=== PATIENT | male | born 1955 | race Hispanic/Latino ===

== ENCOUNTER 2019-10-07 14:53 | Emergency (ER) | payer MEDICAID, MEDICARE ==
[2019-10-07 15:24] LABS: BASOPHILS % (AUTO) 0.2 % (0.0-5.0); LYMPHOCYTES % (AUTO) 14.7 % (21.0-51.0); MEAN CORPUSCULAR HEMOGLOBIN 32.5 pg (27.0-33.0); MEAN CORPUSCULAR HGB CONC 35.7 g/dL (32.0-36.0); MEAN CORPUSCULAR VOLUME 91.1 fL (79-99); NEUTROPHILS % (AUTO) 71.7 % (40.0-77.0); PLATELET COUNT (AUTO) 144 K/uL (130-400); RED BLOOD CELL COUNT(AUTO) 4.61 MIL/uL (4.50-6.20); RED CELL DISTRIBUTION WIDTH 12.7 % (11.0-15.5); WHITE BLOOD COUNT (AUTO) 4.8 K/uL (4.8-10.8)
[2019-10-07 15:35] LABS: CREATININE 0.6 mg/dL (0.5-1.5); POTASSIUM 3.2 mmol/L (3.5-5.1)
[2019-10-07 15:49] LABS: ALBUMIN 3.5 g/dL (3.5-5.0); BILIRUBIN,TOTAL 0.3 mg/dL (0.2-1.0); TOTAL PROTEIN, SERUM 7.4 g/dL (6.0-8.3)
[2019-10-07] MEDS ORDERED: POTASSIUM CHLORIDE 20 MEQ ERTAB PO ONE (16:26)
[2019-10-07] MEDS ORDERED: GUAIFENESIN SUGAR-FREE 100 MG/5 ML UDCUP ONE (17:13)
[2019-10-07] MEDS ORDERED: BENZONATATE 100 MG CAPSULE PO ONE (17:14)
== END 2019-10-07 17:42 | disposition home or self-care (01) ==
LOC: EDH 14:53
DX: U07.1 COVID-19 (principal); J20.8 Acute bronchitis due to other specified organisms; R07.89 Other chest pain; R03.0 Elevated blood-pressure reading, without diagnosis of hypertension; E87.6 Hypokalemia
CPT/HCPCS: 36415; 71045; 80053; 82550; 84484; 85025; 87426; 93005

== ENCOUNTER 2019-10-12 21:34 | Inpatient (IN) | payer MEDICARE ==
[~2019-10-12] VITALS: Ht 165.1 cm; Wt 70.4 kg
[2019-10-12 22:02] LABS: BASOPHILS % (AUTO) 0.1 % (0.0-5.0); HEMATOCRIT 43.6 % (42-54); LYMPHOCYTES % (AUTO) 6.8 % (21.0-51.0); MEAN CORPUSCULAR HEMOGLOBIN 32.2 pg (27.0-33.0); MEAN CORPUSCULAR HGB CONC 35.3 g/dL (32.0-36.0); MONOCYTES % (AUTO) 5.6 % (3.0-13.0); NEUTROPHILS % (AUTO) 86.8 % (40.0-77.0); PLATELET COUNT (AUTO) 228 K/uL (130-400); RED BLOOD CELL COUNT(AUTO) 4.79 MIL/uL (4.50-6.20); RED CELL DISTRIBUTION WIDTH 12.8 % (11.0-15.5); WHITE BLOOD COUNT (AUTO) 8.7 K/uL (4.8-10.8)
[2019-10-12 22:19] LABS: CREATININE 0.6 mg/dL (0.5-1.5); POTASSIUM 3.5 mmol/L (3.5-5.1)
[2019-10-12 22:33] LABS: FERRITIN 508 ng/mL (30-400)
[2019-10-12 22:41] LABS: ALBUMIN 2.9 g/dL (3.5-5.0); BILIRUBIN,TOTAL 0.6 mg/dL (0.2-1.0); TOTAL PROTEIN, SERUM 7.2 g/dL (6.0-8.3)
[2019-10-12] MEDS ORDERED: IOHEXOL-350 75 ML VIAL IV ONE (23:27)
[2019-10-13] VITALS (14 sets, daily range): BP systolic 116–138; BP diastolic 67–92
[2019-10-13] MEDS ORDERED: BENZONATATE 100 MG CAPSULE PO PRN (00:15)
[2019-10-13] MEDS ORDERED: ONDANSETRON HCL 4 MG/2 ML VIAL IV PRN (00:15)
[2019-10-13] MEDS ORDERED: LIDOCAINE HCL 2% VISCOUS 30 ML, MAG HYDROX/AL HYDROX/SIMETH 30 ML, BELLADONNA-PHENOBARB... PO PRN ×3 (00:15)
[2019-10-13] MEDS ORDERED: LACTATED RINGERS 1000ML 1,000 ML IV SCH (00:15)
[2019-10-13] MEDS ORDERED: ZOLPIDEM TARTRATE 5 MG TAB PO PRN (00:15)
[2019-10-13] MEDS ORDERED: MAG HYDROX/AL HYDROX/SIMETH 30 ML, LIDOCAINE HCL 2% VISCOUS 30 ML, DIPHENHYDRAMINE HCL ... PO PRN ×6 (00:15→06:30)
[2019-10-13] MEDS ORDERED: DiphenhydrAMINE HCL 50 MG/ML VIAL IV PRN (00:15)
[2019-10-13] MEDS ORDERED: DIPHENHYDRAMINE HCL 25 MG CAPSULE PO PRN (00:15)
[2019-10-13] MEDS ORDERED: ACETAMINOPHEN 325 MG TAB PO PRN ×2 (00:15)
[2019-10-13] MEDS ORDERED: LACTULOSE 20 GM/30 ML UDCUP PO PRN (00:15)
[2019-10-13] MEDS ORDERED: MAG HYDROX/AL HYDROX/SIMETH ES 30 ML SUSP UDCUP PO PRN (00:15)
[2019-10-13] MEDS ORDERED: NITROGLYCERIN 0.4 MG SL TAB SL PRN (00:15)
[2019-10-13] MEDS: PHARMACY COMMUNICATION**REMDESIVIR ORDER MISC SCH ×4 (00:30→20:50)
[2019-10-13] MEDS ORDERED: AZIT250T9 PO (02:43)
[2019-10-13] MEDS ORDERED: METH4TAB15 PO (02:43)
[2019-10-13] MEDS ORDERED: BENZ-51 PO (02:43)
[2019-10-13] MEDS ORDERED: IVER3TAB PO (02:43)
[2019-10-13] MEDS ORDERED: BUDE10.2 PO (02:43)
[2019-10-13 07:26] LABS: INR 0.93 (0.85-1.15); PARTIAL THROMBOPLASTIN TIME 28.2 SEC (26.3-35.5); PROTHROMBIN TIME 10.1 SEC (9.6-11.6)
[2019-10-13] MEDS: ENOXAPARIN SODIUM 40 MG/0.4 ML SYRINGE SQ SCH (08:23)
[2019-10-13] MEDS: FAMOTIDINE/PF 20 MG/2 ML VIAL IV SCH ×2 (08:23→20:49)
--- NOTE | 2019-10-13 16:43 | NUR ---
FFP Pt received Plasma x2. VS stable.No abnormal sins and symptoms were noted. Family called and updated (Susanne/sister [phone])
[2019-10-13] MEDS ORDERED: GUAIFENESIN-CODEINE 5 ML SYRUP PO PRN (20:15)
[2019-10-13] MEDS: GUAIFENESIN-DM 200/20 MG 10 ML PO PRN (20:50)
[2019-10-14 03:00] VITALS: BP 107/68
[2019-10-14 04:36] LABS: ALANINE AMINOTRANSFERASE 64 U/L (12-78); ALBUMIN 2.3 g/dL (3.5-5.0); ASPARTATE AMINOTRANSFERASE 71 U/L (10-37); BILIRUBIN,TOTAL 0.6 mg/dL (0.2-1.0); CARBON DIOXIDE 29 mmol/L (21-32); CHLORIDE 103 mmol/L (101-111); CREATININE 0.5 mg/dL (0.5-1.5); GLOMERULAR FILTR. RATE CALC 178 mL/min (>60); GLUCOSE,RANDOM 110 mg/dL (70-105); LACTATE DEHYDROGENASE 362 U/L (81-234); POTASSIUM 3.4 mmol/L (3.5-5.1); SODIUM SERUM 138 mmol/L (136-145); TOTAL PROTEIN, SERUM 5.8 g/dL (6.0-8.3); UREA NITROGEN, BLOOD 10 mg/dL (7-18)
[2019-10-14] MEDS ORDERED: LIDOCAINE HCL-MPF 1% 2ML VIAL IV PRN (05:00)
[2019-10-14] MEDS ORDERED: POTASSIUM CHLORIDE 20MEQ/100ML 100 ML IV PRN (05:00)
[2019-10-14] MEDS ORDERED: POTASSIUM CHLORIDE 20 MEQ ERTAB PO PRN (05:00)
[2019-10-14] MEDS: POTASSIUM CHLORIDE 10% ELIXIR 20 MEQ/15 ML UDCUP PO PRN (06:21)
[2019-10-14] MEDS: FAMOTIDINE/PF 20 MG/2 ML VIAL IV SCH ×2 (07:59→20:35)
[2019-10-14] MEDS: ENOXAPARIN SODIUM 40 MG/0.4 ML SYRINGE SQ SCH (07:59)
[2019-10-14 09:03] VITALS: BP 111/75
[2019-10-14] MEDS ORDERED: PHARMACY COMMUNICATION MISC SCH ×2 (09:45→23:30)
[2019-10-14 12:13] VITALS: BP 126/82
[2019-10-14 15:36] VITALS: BP 107/67
[2019-10-14 19:00] VITALS: BP 130/85
--- NOTE | 2019-10-14 19:24 | NUR ---
cm note unable to reach pt in room, call made to sister gustavo rain ph# [phone] and states resides at home alone. is independent with ambulation/adls no dme. no home services. pt drives some. sister can assist as needed. Addendum: 10/14/19 at 1928 by LUIS ANTONIO ALTAMIRANO CM Amended: Links added.
--- NOTE | 2019-10-14 19:30 | NUR ---
PM Assessment Received pt awake, watching TV, routine assessment done, plan of care discuss, pt stated that he was inform by MD & wondering when he will start medication for COVID. I made him aware that we will re-verify with MD tomorrow as I did received report that pt did not meet criteria for Remdesivir. Pt confirm had received plasma & that stated feeling better at this time. Pt O2 on assessment was not connected to the pt, stated he did ambulate to the bathroom earlier & forgot to place it back. Pt claimed slight SOB at that time, O2 at 2L/NC place back on at this time.
[2019-10-14 23:00] VITALS: BP 134/87
[2019-10-15 03:00] VITALS: BP 131/86
[2019-10-15 04:18] LABS: BASOPHILS % (AUTO) 0.3 % (0.0-5.0); EOSINOPHILS % (AUTO) 2.4 % (0.0-8.0); HEMATOCRIT 38.9 % (42-54); LYMPHOCYTES % (AUTO) 18.4 % (21.0-51.0); MEAN CORPUSCULAR HEMOGLOBIN 31.7 pg (27.0-33.0); MEAN CORPUSCULAR HGB CONC 34.2 g/dL (32.0-36.0); MEAN CORPUSCULAR VOLUME 92.6 fL (79-99); MONOCYTES % (AUTO) 9.6 % (3.0-13.0); NEUTROPHILS % (AUTO) 68.6 % (40.0-77.0); PLATELET COUNT (AUTO) 281 K/uL (130-400); RED CELL DISTRIBUTION WIDTH 12.4 % (11.0-15.5); WHITE BLOOD COUNT (AUTO) 7.6 K/uL (4.8-10.8)
[2019-10-15 04:39] LABS: ALANINE AMINOTRANSFERASE 66 U/L (12-78); ALBUMIN 2.3 g/dL (3.5-5.0); ASPARTATE AMINOTRANSFERASE 57 U/L (10-37); BILIRUBIN,TOTAL 0.6 mg/dL (0.2-1.0); CARBON DIOXIDE 29 mmol/L (21-32); CHLORIDE 103 mmol/L (101-111); CREATINE KINASE, TOTAL 176 U/L (21-232); CREATININE 0.5 mg/dL (0.5-1.5); GLOMERULAR FILTR. RATE CALC 178 mL/min (>60); GLUCOSE,RANDOM 117 mg/dL (70-105); LACTATE DEHYDROGENASE 331 U/L (81-234); POTASSIUM 3.4 mmol/L (3.5-5.1); SODIUM SERUM 139 mmol/L (136-145); TOTAL PROTEIN, SERUM 5.9 g/dL (6.0-8.3); UREA NITROGEN, BLOOD 9 mg/dL (7-18)
[2019-10-15 07:00] VITALS: BP 123/89
[2019-10-15] MEDS: FAMOTIDINE/PF 20 MG/2 ML VIAL IV SCH ×2 (08:52→20:15)
[2019-10-15] MEDS: DEXAMETHASONE SOD PHOSPHATE 4 MG/ML 1ML VIAL IVP SCH (08:53)
[2019-10-15] MEDS: ENOXAPARIN SODIUM 40 MG/0.4 ML SYRINGE SQ SCH (08:54)
[2019-10-15 11:00] VITALS: BP 147/89
--- NOTE | 2019-10-15 11:57 | NUR ---
MD ROUNDS DR COREAS IN TO SEE PATIENT, DISCUSS POC TO GET 2ND UNIT OF PLASMA, REMDESIVIR ON HOLD D/T LIVER AST-[id number], STATES FROM PULMONARY [place] [place] CAN GO HOME AFTER PLASMA GIVEN AND WILL NEED APPOINTMENT FOR 1 WEEK AFTER D/C W/ PULMONARY. UP TO HOSPITALIST TO D/C.
--- NOTE | 2019-10-15 12:42 | NUR ---
HAD CHARGE NURSE JANA CHECK RECORD WITH ME ON THE PLASMA, AND BOTH UNITS WERE GIVEN ON 10/12 MADE ALONA SABILLON AWARE THIS HAD BEEN COMPLETED. AND CHARGE NURSE SPOKE WITH PATIENT ABOUT THIS AND EXPLAINED THE CONFUSION W/ THE PROVIDERS THAT HE HAD ALREADY GOTTEN BOTH UNIT OF CONVALESCENT PLASMA. PT. 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
[2019-10-15 16:00] VITALS: BP 141/75
[2019-10-15 19:59] VITALS: BP 149/89
[2019-10-15] MEDS: GUAIFENESIN-DM 200/20 MG 10 ML PO PRN (20:32)
[2019-10-16] VITALS (8 sets, daily range): BP systolic 122–139; BP diastolic 74–88
[2019-10-16 04:33] LABS: BASOPHILS % (AUTO) 0.2 % (0.0-5.0); EOSINOPHILS % (AUTO) 1.2 % (0.0-8.0); LYMPHOCYTES % (AUTO) 21.4 % (21.0-51.0); MEAN CORPUSCULAR HEMOGLOBIN 32.1 pg (27.0-33.0); MEAN CORPUSCULAR HGB CONC 34.9 g/dL (32.0-36.0); MONOCYTES % (AUTO) 11.2 % (3.0-13.0); NEUTROPHILS % (AUTO) 64.9 % (40.0-77.0); PLATELET COUNT (AUTO) 305 K/uL (130-400); RED BLOOD CELL COUNT(AUTO) 4.24 MIL/uL (4.50-6.20); RED CELL DISTRIBUTION WIDTH 12.2 % (11.0-15.5); WHITE BLOOD COUNT (AUTO) 6.5 K/uL (4.8-10.8)
[2019-10-16 04:47] LABS: ALANINE AMINOTRANSFERASE 79 U/L (12-78); ALBUMIN 2.3 g/dL (3.5-5.0); ASPARTATE AMINOTRANSFERASE 52 U/L (10-37); BILIRUBIN,TOTAL 0.5 mg/dL (0.2-1.0); CARBON DIOXIDE 30 mmol/L (21-32); CHLORIDE 104 mmol/L (101-111); CREATININE 0.5 mg/dL (0.5-1.5); GLOMERULAR FILTR. RATE CALC 178 mL/min (>60); GLUCOSE,RANDOM 146 mg/dL (70-105); LACTATE DEHYDROGENASE 313 U/L (81-234); POTASSIUM 3.3 mmol/L (3.5-5.1); SODIUM SERUM 140 mmol/L (136-145); TOTAL PROTEIN, SERUM 6.2 g/dL (6.0-8.3); UREA NITROGEN, BLOOD 9 mg/dL (7-18)
[2019-10-16] MEDS ORDERED: PHARMACY COMMUNICATION MISC SCH (08:45)
[2019-10-16] MEDS: FAMOTIDINE/PF 20 MG/2 ML VIAL IV SCH ×2 (09:39→20:20)
[2019-10-16] MEDS: DEXAMETHASONE SOD PHOSPHATE 4 MG/ML 1ML VIAL IVP SCH (09:39)
[2019-10-16] MEDS: ENOXAPARIN SODIUM 40 MG/0.4 ML SYRINGE SQ SCH (09:54)
[2019-10-16] MEDS: POTASSIUM CHLORIDE 10% ELIXIR 20 MEQ/15 ML UDCUP PO PRN ×2 (11:55→14:18)
[2019-10-16] MEDS ORDERED: PHARMACY COMMUNICATION**REMDESIVIR ORDER MISC SCH (16:45)
[2019-10-16] MEDS: GUAIFENESIN-DM 200/20 MG 10 ML PO PRN (20:26)
[2019-10-17] VITALS (7 sets, daily range): BP systolic 116–146; BP diastolic 54–94
[2019-10-17 04:42] LABS: BASOPHILS % (AUTO) 0.2 % (0.0-5.0); EOSINOPHILS % (AUTO) 0.8 % (0.0-8.0); HEMATOCRIT 39.5 % (42-54); LYMPHOCYTES % (AUTO) 19.7 % (21.0-51.0); MEAN CORPUSCULAR HEMOGLOBIN 31.5 pg (27.0-33.0); MEAN CORPUSCULAR HGB CONC 34.2 g/dL (32.0-36.0); MEAN CORPUSCULAR VOLUME 92.3 fL (79-99); MONOCYTES % (AUTO) 11.1 % (3.0-13.0); NEUTROPHILS % (AUTO) 66.9 % (40.0-77.0); PLATELET COUNT (AUTO) 371 K/uL (130-400); RED BLOOD CELL COUNT(AUTO) 4.28 MIL/uL (4.50-6.20); RED CELL DISTRIBUTION WIDTH 12.4 % (11.0-15.5); WHITE BLOOD COUNT (AUTO) 9.2 K/uL (4.8-10.8)
[2019-10-17 05:12] LABS: ALANINE AMINOTRANSFERASE 93 U/L (12-78); ALBUMIN 2.4 g/dL (3.5-5.0); ASPARTATE AMINOTRANSFERASE 52 U/L (10-37); BILIRUBIN,TOTAL 0.4 mg/dL (0.2-1.0); CARBON DIOXIDE 27 mmol/L (21-32); CHLORIDE 100 mmol/L (101-111); CREATININE 0.6 mg/dL (0.5-1.5); GLOMERULAR FILTR. RATE CALC 144 mL/min (>60); GLUCOSE,RANDOM 203 mg/dL (70-105); LACTATE DEHYDROGENASE 289 U/L (81-234); SODIUM SERUM 134 mmol/L (136-145); TOTAL PROTEIN, SERUM 6.2 g/dL (6.0-8.3); UREA NITROGEN, BLOOD 12 mg/dL (7-18)
--- NOTE | 2019-10-17 07:43 | NUR ---
Page made to Dr. Santana regarding orders for Dialysis. Addendum: 10/18/19 at 1559 by GUSTAVO PANCHAL RN RN wrong patient
[2019-10-17] MEDS ORDERED: REMDESIVIR (EUA) 520 200 MG in SODIUM CHLORIDE 0.9% 250 ML IV SCH (08:45)
[2019-10-17] MEDS ORDERED: COMPOUND IV REFRIGERATED 1 EACH IVSOLN MISC PRN (08:45)
[2019-10-17] MEDS: FAMOTIDINE/PF 20 MG/2 ML VIAL IV SCH ×2 (08:53→20:19)
[2019-10-17] MEDS: DEXAMETHASONE SOD PHOSPHATE 4 MG/ML 1ML VIAL IVP SCH (08:53)
[2019-10-17] MEDS: ENOXAPARIN SODIUM 40 MG/0.4 ML SYRINGE SQ SCH (08:54)
[2019-10-17] MEDS ORDERED: SODIUM CHLORIDE 0.9% 50 ML IV ONE (11:48)
[2019-10-17] MEDS: GUAIFENESIN-DM 200/20 MG 10 ML PO PRN (20:19)
[2019-10-17 23:26] LABS: BASOPHILS % (AUTO) 0.2 % (0.0-5.0); EOSINOPHILS % (AUTO) 0.5 % (0.0-8.0); HEMATOCRIT 40.4 % (42-54); LYMPHOCYTES % (AUTO) 19.5 % (21.0-51.0); MEAN CORPUSCULAR HEMOGLOBIN 32.3 pg (27.0-33.0); MEAN CORPUSCULAR HGB CONC 34.9 g/dL (32.0-36.0); MEAN CORPUSCULAR VOLUME 92.7 fL (79-99); MONOCYTES % (AUTO) 11.4 % (3.0-13.0); NEUTROPHILS % (AUTO) 66.8 % (40.0-77.0); PLATELET COUNT (AUTO) 396 K/uL (130-400); RED BLOOD CELL COUNT(AUTO) 4.36 MIL/uL (4.50-6.20); RED CELL DISTRIBUTION WIDTH 12.3 % (11.0-15.5); WHITE BLOOD COUNT (AUTO) 9.2 K/uL (4.8-10.8)
[2019-10-18 04:10] VITALS: BP 115/75
[2019-10-18 04:46] LABS: BASOPHILS % (AUTO) 0.2 % (0.0-5.0); EOSINOPHILS % (AUTO) 1.5 % (0.0-8.0); HEMATOCRIT 40.3 % (42-54); MEAN CORPUSCULAR HGB CONC 34.5 g/dL (32.0-36.0); MEAN CORPUSCULAR VOLUME 92.9 fL (79-99); MONOCYTES % (AUTO) 10.8 % (3.0-13.0); NEUTROPHILS % (AUTO) 59.9 % (40.0-77.0); PLATELET COUNT (AUTO) 372 K/uL (130-400); RED BLOOD CELL COUNT(AUTO) 4.34 MIL/uL (4.50-6.20); RED CELL DISTRIBUTION WIDTH 12.3 % (11.0-15.5); WHITE BLOOD COUNT (AUTO) 8.7 K/uL (4.8-10.8)
[2019-10-18 04:59] LABS: ALBUMIN 2.5 g/dL (3.5-5.0); BILIRUBIN,TOTAL 0.4 mg/dL (0.2-1.0); CREATININE 0.5 mg/dL (0.5-1.5); CRP QUANTITATIVE 9.6 mg/L (0.00-9.0)
[2019-10-18] MEDS: PHARMACY COMMUNICATION MISC SCH ×2 (05:31→19:34)
[2019-10-18 08:20] VITALS: BP_SYST 126; BP_SYST 130; BP_DIAS 77; BP_DIAS 89
[2019-10-18] MEDS ORDERED: REMDESIVIR (EUA) 520 100 MG in SODIUM CHLORIDE 0.9% 250 ML IV SCH (08:45)
[2019-10-18] MEDS: DEXAMETHASONE SOD PHOSPHATE 4 MG/ML 1ML VIAL IVP SCH (09:04)
[2019-10-18] MEDS: GUAIFENESIN-CODEINE 5 ML SYRUP PO PRN (09:04)
[2019-10-18] MEDS: FAMOTIDINE/PF 20 MG/2 ML VIAL IV SCH ×2 (09:05→19:50)
[2019-10-18] MEDS: ENOXAPARIN SODIUM 40 MG/0.4 ML SYRINGE SQ SCH ×3 (09:05→19:51)
--- NOTE | 2019-10-18 11:15 | NUR ---
DC PLAN SPOKE TO PATIENT. NURSE BROUGHT PHONE INTO ROOM. SAID HE LIVES ALONE AND IS INDEPENDENT. NIECE NUMBER IS [phone]. SAID NIECE OR BROTHER CAN COME AND PICK HIM UP. GAVE VERBAL CONSENT TO SET UP OXYGEN. WAS SETTING UP OXYGEN WHEN DR. HOLGUIN GOT PHARMACY TO APPROVE REMDESIVER. Addendum: 10/18/19 at 1136 by DESIRAE BURRIS RN CM Amended: Links added.
[2019-10-18 11:52] VITALS: BP 120/90
[2019-10-18] MEDS: REMDESIVIR (EUA) 520 100 MG in SODIUM CHLORIDE 0.9% 250 ML IV SCH (12:38)
[2019-10-18] MEDS ORDERED: SODIUM CHLORIDE 0.9% 50 ML IV ONE (16:00)
--- NOTE | 2019-10-18 16:15 | NUR ---
Bed bath given assist x 1. Pt put in prone position. 3LNC. Will continue to monitor.
[2019-10-18 17:44] VITALS: BP 129/79
[2019-10-18 19:45] VITALS: BP 105/68
[2019-10-18 23:02] VITALS: BP 113/81
[2019-10-19 03:53] VITALS: BP 118/79
[2019-10-19 04:56] LABS: BASOPHILS % (AUTO) 0.1 % (0.0-5.0); EOSINOPHILS % (AUTO) 0.3 % (0.0-8.0); HEMATOCRIT 41.5 % (42-54); LYMPHOCYTES % (AUTO) 22.1 % (21.0-51.0); MEAN CORPUSCULAR HEMOGLOBIN 32.2 pg (27.0-33.0); MEAN CORPUSCULAR HGB CONC 34.5 g/dL (32.0-36.0); MEAN CORPUSCULAR VOLUME 93.5 fL (79-99); MONOCYTES % (AUTO) 10.9 % (3.0-13.0); NEUTROPHILS % (AUTO) 65.2 % (40.0-77.0); PLATELET COUNT (AUTO) 371 K/uL (130-400); RED BLOOD CELL COUNT(AUTO) 4.44 MIL/uL (4.50-6.20); RED CELL DISTRIBUTION WIDTH 12.4 % (11.0-15.5); WHITE BLOOD COUNT (AUTO) 9.3 K/uL (4.8-10.8)
[2019-10-19 05:29] LABS: ALBUMIN 2.6 g/dL (3.5-5.0); BILIRUBIN,TOTAL 0.5 mg/dL (0.2-1.0); CREATININE 0.7 mg/dL (0.5-1.5)
[2019-10-19 08:30] VITALS: BP 119/65
[2019-10-19] MEDS: FAMOTIDINE/PF 20 MG/2 ML VIAL IV SCH ×2 (08:41→20:58)
[2019-10-19] MEDS: DEXAMETHASONE SOD PHOSPHATE 4 MG/ML 1ML VIAL IVP SCH (08:44)
[2019-10-19] MEDS: ENOXAPARIN SODIUM 40 MG/0.4 ML SYRINGE SQ SCH ×2 (08:45→20:58)
[2019-10-19] MEDS: GUAIFENESIN-DM 200/20 MG 10 ML PO PRN ×2 (09:50→20:59)
[2019-10-19] MEDS: REMDESIVIR (EUA) 520 100 MG in SODIUM CHLORIDE 0.9% 250 ML IV SCH (11:51)
[2019-10-19 11:55] VITALS: BP 102/74
[2019-10-19 16:30] VITALS: BP 116/71
[2019-10-19 19:00] VITALS: BP 103/70
[2019-10-19 23:53] VITALS: BP 108/73
[2019-10-20 03:00] VITALS: BP 113/74
[2019-10-20 04:28] LABS: BASOPHILS % (AUTO) 0.1 % (0.0-5.0); EOSINOPHILS % (AUTO) 0.4 % (0.0-8.0); LYMPHOCYTES % (AUTO) 25.3 % (21.0-51.0); MEAN CORPUSCULAR HEMOGLOBIN 31.5 pg (27.0-33.0); MEAN CORPUSCULAR VOLUME 92.9 fL (79-99); MONOCYTES % (AUTO) 9.7 % (3.0-13.0); PLATELET COUNT (AUTO) 361 K/uL (130-400); RED BLOOD CELL COUNT(AUTO) 4.63 MIL/uL (4.50-6.20); RED CELL DISTRIBUTION WIDTH 12.3 % (11.0-15.5); WHITE BLOOD COUNT (AUTO) 10.3 K/uL (4.8-10.8)
[2019-10-20 04:43] LABS: ALBUMIN 2.7 g/dL (3.5-5.0); BILIRUBIN,TOTAL 0.4 mg/dL (0.2-1.0); CREATININE 0.6 mg/dL (0.5-1.5); POTASSIUM 4.1 mmol/L (3.5-5.1); TOTAL PROTEIN, SERUM 6.1 g/dL (6.0-8.3)
[2019-10-20] MEDS: PHARMACY COMMUNICATION MISC SCH (05:27)
[2019-10-20 08:28] VITALS: BP 125/76
[2019-10-20] MEDS: DEXAMETHASONE SOD PHOSPHATE 4 MG/ML 1ML VIAL IVP SCH (08:58)
[2019-10-20] MEDS: FAMOTIDINE/PF 20 MG/2 ML VIAL IV SCH ×2 (09:00→20:43)
[2019-10-20] MEDS: ENOXAPARIN SODIUM 40 MG/0.4 ML SYRINGE SQ SCH ×2 (09:01→20:43)
[2019-10-20] MEDS: GUAIFENESIN-DM 200/20 MG 10 ML PO PRN ×2 (09:23→15:29)
[2019-10-20] MEDS: REMDESIVIR (EUA) 520 100 MG in SODIUM CHLORIDE 0.9% 250 ML IV SCH (12:19)
[2019-10-20 12:29] VITALS: BP 110/76
--- NOTE | 2019-10-20 12:57 | NUR ---
DC PLAN SPOKE TO DR. FERNANDEZ SAID PATIENT NEEDS ONE MORE DAY OF REMDESIVIR ITS 4 PLUS 1. PATIENT NOW ON RA. Addendum: 10/20/19 at 1258 by DESIRAE BURRIS RN CM Amended: Links added.
[2019-10-20 16:52] VITALS: BP 125/86
[2019-10-20 19:00] VITALS: BP 119/80
[2019-10-20] MEDS: GUAIFENESIN-CODEINE 5 ML SYRUP PO PRN (20:43)
[2019-10-20 23:00] VITALS: BP 126/86
[2019-10-21 03:00] VITALS: BP 125/84
[2019-10-21 04:50] LABS: BASOPHILS % (AUTO) 0.3 % (0.0-5.0); EOSINOPHILS % (AUTO) 0.3 % (0.0-8.0); HEMATOCRIT 46.3 % (42-54); LYMPHOCYTES % (AUTO) 21.6 % (21.0-51.0); MEAN CORPUSCULAR HEMOGLOBIN 32.2 pg (27.0-33.0); MEAN CORPUSCULAR HGB CONC 34.1 g/dL (32.0-36.0); MEAN CORPUSCULAR VOLUME 94.3 fL (79-99); MONOCYTES % (AUTO) 7.5 % (3.0-13.0); NEUTROPHILS % (AUTO) 69.1 % (40.0-77.0); PLATELET COUNT (AUTO) 301 K/uL (130-400); RED BLOOD CELL COUNT(AUTO) 4.91 MIL/uL (4.50-6.20); RED CELL DISTRIBUTION WIDTH 12.6 % (11.0-15.5); WHITE BLOOD COUNT (AUTO) 10.4 K/uL (4.8-10.8)
[2019-10-21] MEDS: PHARMACY COMMUNICATION MISC SCH (05:04)
[2019-10-21 05:13] LABS: CRP QUANTITATIVE 11.6 mg/L (0.00-9.0)
[2019-10-21] MEDS: FAMOTIDINE/PF 20 MG/2 ML VIAL IV SCH ×2 (08:32→20:08)
[2019-10-21] MEDS: ENOXAPARIN SODIUM 40 MG/0.4 ML SYRINGE SQ SCH ×2 (08:38→20:08)
[2019-10-21] MEDS: GUAIFENESIN-CODEINE 5 ML SYRUP PO PRN ×2 (08:40→20:08)
[2019-10-21 08:50] VITALS: BP 116/77
[2019-10-21] MEDS: REMDESIVIR (EUA) 520 100 MG in SODIUM CHLORIDE 0.9% 250 ML IV SCH (12:17)
[2019-10-21 12:50] VITALS: BP 102/72
[2019-10-21 17:20] VITALS: BP 123/77
[2019-10-21 19:00] VITALS: BP 103/68
[2019-10-21 23:00] VITALS: BP 112/73
[2019-10-22 03:00] VITALS: BP 115/71
[2019-10-22] MEDS: PHARMACY COMMUNICATION MISC SCH (05:23)
[2019-10-22 06:36] LABS: BASOPHILS % (AUTO) 0.4 % (0.0-5.0); EOSINOPHILS % (AUTO) 2.1 % (0.0-8.0); HEMATOCRIT 44.7 % (42-54); MEAN CORPUSCULAR HEMOGLOBIN 32.2 pg (27.0-33.0); MEAN CORPUSCULAR HGB CONC 34.5 g/dL (32.0-36.0); MEAN CORPUSCULAR VOLUME 93.5 fL (79-99); MONOCYTES % (AUTO) 9.7 % (3.0-13.0); NEUTROPHILS % (AUTO) 59.4 % (40.0-77.0); PLATELET COUNT (AUTO) 317 K/uL (130-400); RED BLOOD CELL COUNT(AUTO) 4.78 MIL/uL (4.50-6.20); WHITE BLOOD COUNT (AUTO) 9.6 K/uL (4.8-10.8)
[2019-10-22 06:50] LABS: ALBUMIN 2.7 g/dL (3.5-5.0); BILIRUBIN,TOTAL 0.7 mg/dL (0.2-1.0); CREATININE 0.6 mg/dL (0.5-1.5); POTASSIUM 3.9 mmol/L (3.5-5.1); TOTAL PROTEIN, SERUM 5.8 g/dL (6.0-8.3)
[2019-10-22 08:30] VITALS: BP 108/77
[2019-10-22] MEDS: FAMOTIDINE/PF 20 MG/2 ML VIAL IV SCH (08:57)
[2019-10-22] MEDS: ENOXAPARIN SODIUM 40 MG/0.4 ML SYRINGE SQ SCH (08:58)
[2019-10-22] MEDS: GUAIFENESIN-CODEINE 5 ML SYRUP PO PRN (09:08)
[2019-10-22 12:15] VITALS: BP 138/87
[2019-10-22] MEDS ORDERED: APIX2.5T PO (13:49)
--- NOTE | 2019-10-22 16:56 | NUR ---
DISCHARGE Pt was discharged home. Summary papers, medication coupon, education was given. PIV removed/intact. Pt and belongings transferred off the unit.
== END 2019-10-22 15:40 | disposition home or self-care (01) | DRG 177 ==
LOC: EDH 21:34 → EDHIP 10-13 00:15 → 2AH 10-13 02:22
PROVIDERS: ADMIT Internal Medicine; ATTEND Internal Medicine
PROC: XW13325 Transfusion of Convalescent Plasma (Nonautologous) into Peripheral Vein, Percutaneous Approach, New Technology Group 5 (ICD-10-PCS; principal; 2019-10-13)
PROC: XW033E5 Introduction of Remdesivir Anti-infective into Peripheral Vein, Percutaneous Approach, New Technology Group 5 (ICD-10-PCS; 2019-10-17)
DX: U07.1 COVID-19 (principal); J12.89 Other viral pneumonia; J96.01 Acute respiratory failure with hypoxia; M62.82 Rhabdomyolysis; E87.6 Hypokalemia; G14 Postpolio syndrome; G80.9 Cerebral palsy, unspecified; K80.20 Calculus of gallbladder without cholecystitis without obstruction; G83.9 Paralytic syndrome, unspecified
CPT/HCPCS: 36415; 36430; 71045; 71275; 80053; 82550; 82728; 83605; 83615; 84145; 84484; 85025; 85378; 85610; 85730; 86140; 86850; 86900; 86901; 86927; 87486; 87581; 87633; 87798; 93005; 94760; G0378; J1100; J1650; J3490; J7050; Q9967